=== PATIENT | male | born 1980 | race Caucasian/White ===

== ENCOUNTER 2016-08-04 20:06 | Emergency (ER) | payer OTHER ==
[~2016-08-04] VITALS: Ht 177.8 cm; Wt 125.0 kg
[2016-08-04] MEDS ORDERED: EFFEXOR75 MG PO (20:59)
[2016-08-04] MEDS ORDERED: ADDERALL20 MG PO (21:00)
[2016-08-04 21:53] LABS: HEMATOCRIT 39.5 % (38.0-50.0); MCH 29.7 PG (29.0-34.0); MCHC 33.9 G/DL (30.0-36.0); MCV 87.6 FL (86-99); PLATELET COUNT 240 K/uL (156-360); RBC DIS.WIDTH-CV 12.9 % (11.8-14.6); RBC DIS.WIDTH-SD 40.3 % (39-53); RED BLOOD COUNT 4.51 M/uL (4.00-5.50); WHITE BLOOD COUNT 9.1 K/uL (4.1-10.2)
[2016-08-04 22:01] LABS: CHLORIDE 103 mEq/L (99-109); POTASSIUM 3.7 mEq/L (3.7-5.4); SODIUM 139 mEq/L (136-147)
[2016-08-04 22:04] LABS: GLUCOSE 110 mg/dL (70-99)
[2016-08-04 22:05] LABS: ANION GAP 9 MEQ/L (2-14)
[2016-08-04 22:06] LABS: TOTAL BILIRUBIN 0.3 mg/dL (0.0-1.0)
[2016-08-04 22:07] LABS: ALKALINE PHOSPHATASE 52 IU/L (3-129); GFR ESTIMATE (CALCULATED) > 59 mL/min/
[2016-08-04 22:08] LABS: UREA NITROGEN (BUN) 12 mg/dL (9-23)
[2016-08-04 22:11] LABS: LIPASE 6 U/L (1.0-51.0)
[2016-08-04 22:13] LABS: TROP-I INTERPRETATION NEGATIVE; TROPONIN-I < 0.01 ng/mL (0.0-0.30)
[2016-08-04 23:22] LABS: ADD MIUA? YES; BILIRUBIN NEGATIVE; BLOOD SMALL; COLOR AMBER ((YELLOW)); GLUCOSE (STRIP) NEGATIVE; KETONES 20; LEUKOCYTES MODERATE; NITRITE POSITIVE; PROTEIN (STRIP) 100; SPECIFIC GRAVITY 1.028 (1.000-1.030)
[2016-08-04 23:38] LABS: BACTERIA 1+ /HPF; EPITHELIAL CELLS RARE /HPF; MUCUS 4+ /LPF; RED BLOOD CELLS 15-20 /HPF (0-5); WHITE BLOOD CELLS TNTC /HPF (0-5); WHITE BLOOD CELLS CLUMP MANY /HPF (0-5)
[2016-08-05] MEDS ORDERED: ZOFRAN ODT4 MG PO (00:32)
[2016-08-05] MEDS ORDERED: KEFLEX500 MG PO (00:32)
[2016-08-05 00:45] VITALS: BP 107/49
== END 2016-08-05 00:45 | disposition home or self-care (01) ==
LOC: EME → EDBD 20:06 → EME 20:06
PROVIDERS: Physician Assistant
DX: N12 Tubulo-interstitial nephritis, not specified as acute or chronic (principal); R11.2 Nausea with vomiting, unspecified; E86.0 Dehydration
CPT/HCPCS: 71020; 74177; 80053; 81003; 83605; 83690; 84484; 85027; 87040; 87077; 87086; 87186; 87493; 87506; 93005; 99281; 99284; J0696; J2405; J3010; J7030; J7050